=== PATIENT | female | born 1955 | race Caucasian/White ===

== ENCOUNTER → 2022-06-10 11:42 | Outpatient (CLI) | payer MEDICARE, MEDICAID, SELFPAY ==
--- NOTE | ~2022-06-10 | XR_ITS ---
XR shoulder LT min 2V DATE: 06/10/2022 12:35 INDICATION: Left shoulder pain TECHNIQUE: 4 views COMPARISON: None FINDINGS: There is osteopenia. Mild degenerative change at the acromioclavicular joint. No fracture or dislocation, periosteal reaction or bone destruction or abnormal soft tissue calcifica tion. IMPRESSION: Osteopenia Mild degenerative change at acromioclavicular joint Reviewed, dictated and finalized at location A.
--- NOTE | ~2022-06-10 | XR_ITS ---
XR shoulder RT min 2V DATE: 06/10/2022 12:35 INDICATION: Bilateral shoulder pain, limited range of motion TECHNIQUE: 4 views COMPARISON: None FINDINGS: There is osteopenia. No fracture or dislocation, periosteal reaction or bone destruction or abnormal right shoulder soft tissue calcification is noted. There is diminished space between the hu meral head and undersurface of the acromion consistent with rotator cuff tear and/or atrophy. Degenerative spurring of the thoracic spine. IMPRESSION: Osteopenia Rotator cuff pathology Reviewed, dictated and finalized at location A.
== END ==
PROVIDERS: PCP Nurse Practitioner Family; Visit Provider Nurse Practitioner Family
DX: M85.811 Other specified disorders of bone density and structure, right shoulder (principal); M85.812 Other specified disorders of bone density and structure, left shoulder
CPT/HCPCS: 73030